=== PATIENT | female | born 1955 | race Caucasian/White ===

== ENCOUNTER 2022-08-30 11:32 | Outpatient (CLI) | payer MEDICARE | END 2022-08-30 11:33 | disposition home or self-care (01) | LOC: RAD-FRANK 11:32 | PROVIDERS: ATTEND Nurse Practitioner Family | DX: M25.562 Pain in left knee (principal); M17.12 Unilateral primary osteoarthritis, left knee; M11.262 Other chondrocalcinosis, left knee ==

== ENCOUNTER 2023-07-09 10:19 | Outpatient (CLI) | payer MEDICARE | END 2023-07-09 10:20 | disposition home or self-care (01) | LOC: BICMRI 10:19 | PROVIDERS: ATTEND Nurse Practitioner Family | DX: Z12.31 Encounter for screening mammogram for malignant neoplasm of breast (principal); M25.562 Pain in left knee; M25.462 Effusion, left knee; S83.232A Complex tear of medial meniscus, current injury, left knee, initial encounter; Z80.3 Family history of malignant neoplasm of breast | CPT/HCPCS: 77063; 77067 ==

== ENCOUNTER 2023-10-23 10:55 | Outpatient (CLI) | payer MEDICARE | END 2023-10-23 10:56 | disposition home or self-care (01) | LOC: LABBT 10:55 | PROVIDERS: ATTEND Orthopaedic Surgery | DX: Z01.818 Encounter for other preprocedural examination (principal); M17.12 Unilateral primary osteoarthritis, left knee | CPT/HCPCS: 71046; 93005; 93010 ==

== ENCOUNTER 2023-10-28 06:03 | Observation (INO) | payer MEDICARE ==
[2023-10-23 12:15] VITALS: BMI 26.9
[2023-10-23 12:30] LABS: Bilirubin Neg (Negative); Blood, Urine 50 (Negative); Clarity Clear (Clear); Glucose, Urine (Dipstick) Normal (Negative); Ketone, Urine Negative (Negative); Leukocyte Negative (Negative); Nitrite Negative (Negative); Protein, Urine (Dipstick) 15 mg/dl (Neg-Trace); Urobilinogen Normal mg/dL (Less than 2)
[2023-10-23 13:22] LABS: #Basophils 0.1 10x3/uL (0.0-0.2); #Eosinphils 0.1 10x3/uL (0.0-0.5); #Monocytes 0.5 10x3/uL (0.0-1.1); #Neutrophils 2.8 10x3/uL (1.5-8.4); %Basophils 1.2 % (0.0-2.0); %Lymphocytes 33.8 % (18.0-47.0); %Monocytes 10.2 % (0.0-10.0); %Neutrophils 53.2 % (40.0-75.0); Hemoglobin 14.2 g/dL (12.0-15.5); Mean Corpuscular HGB CONC 33.8 g/dL (32.0-36.0); Mean Corpuscular Hemoglobin 32.4 pg (27.0-33.0); Mean Corpuscular Volume 95.9 fl (81.6-98.3); Mean Platelet Volume 10.9 fl (7.4-10.4); Platelet Count 308 10x3/uL (150-450); RBC Distribution Width 12.4 % (11.5-14.5); Red Blood Cell (RBC) Count 4.38 10x6/uL (3.90-5.03); White Blood Cell (WBC) Count 5.2 10x3/uL (3.5-10.5)
[2023-10-23 13:29] LABS: Prothrombin Time 10.6 sec (9.5-12.1)
[2023-10-23 13:34] LABS: Anion Gap 17 mmol/L (10-20); BUN (Urea Nitrogen) 13 mg/dL (9.8-20.1); Calc. Creatinine Clearance 0 mL/min (70-130); Calcium 9.9 mg/dL (7.8-10.44); Carbon Dioxide 21 mmol/L (23-31); Chloride 105 mmol/L (98-107); Estimated GFR 95; Glucose 108 mg/dL (80-115); Potassium 4.4 mmol/L (3.5-5.1); Sodium 139 mmol/L (136-145)
[2023-10-28] MEDS ORDERED: Tranexamic Acid 1,000 MG/10 ML VIAL ONE ×2 (06:20→09:41)
[2023-10-28] MEDS ORDERED: Sodium Chloride 0.9% 100 ML ONE ×3 (06:21→09:42)
[2023-10-28] MEDS ORDERED: Vancomycin 1 GM/200 ML (FROZEN) BAG ONE (06:21)
[2023-10-28] MEDS ORDERED: Bupivacaine PF 0.5% 30 ML VIAL ONE ×2 (06:25→06:36)
[2023-10-28] MEDS ORDERED: PROPOFOL 20 ML ONE (06:35)
[2023-10-28] MEDS ORDERED: EPINEPHrine 1 MG/ML VIAL ONE (06:35)
[2023-10-28] MEDS ORDERED: Fentanyl 250 MCG/5 ML VIAL ONE (06:35)
[2023-10-28] MEDS ORDERED: fentaNYL 50 mcg/mL 1 mL Vial ONE (06:35)
[2023-10-28] MEDS ORDERED: Lidocaine 1% (PF) 30 ML VIAL ONE (06:36)
[2023-10-28] MEDS ORDERED: Midazolam HCl 2 mg/2 ml Vial ONE (06:36)
[2023-10-28] MEDS ORDERED: CEFAZOLIN 2 GM VIAL ONE (06:54)
[2023-10-28] MEDS ORDERED: Dexamethasone 20 MG/5 ML VIAL ONE (07:25)
[2023-10-28] MEDS ORDERED: PHENYLEPHRINE-NS 100 MCG/ML 10 ML SYRINGE ONE (07:34)
[2023-10-28] MEDS ORDERED: fentaNYL 50 mcg/mL 1 mL Vial SLOW IVP PRN (07:47)
[2023-10-28] MEDS ORDERED: Zolpidem Tartrate 5 MG TAB PO PRN ×2 (08:00→09:30)
[2023-10-28] MEDS ORDERED: Ropivacaine 0.2% 550 ML 550 ML NERVE BLCK SCH (08:00)
[2023-10-28] MEDS ORDERED: Ondansetron PF 4 MG/2 ML Vial IVP PRN ×2 (08:00→09:30)
[2023-10-28] MEDS ORDERED: traMADol HCl 50 MG TAB PO PRN ×2 (08:00)
[2023-10-28] MEDS ORDERED: Promethazine HCl 25 MG/ML VIAL IM PRN ×2 (08:00→09:30)
[2023-10-28] MEDS ORDERED: HYDROcodone/Acetaminophen 10/325 mg Tablet PO PRN (08:00)
[2023-10-28] MEDS ORDERED: Ondansetron PF 4 MG/2 ML Vial ONE (08:42)
[2023-10-28] MEDS ORDERED: Ketorolac Tromethamine 30 MG (1 mL) VIAL ONE (08:42)
[2023-10-28] MEDS ORDERED: HYDROmorphone 0.5 MG/0.5 ML SYRINGE ONE ×2 (09:14→09:36)
[2023-10-28] MEDS ORDERED: Acetaminophen 325 MG TAB PO PRN (09:30)
[2023-10-28] MEDS ORDERED: Tranexamic Acid 1,000 MG in Sodium Chloride 0.9% 100 ML IVPB SCH (09:30)
[2023-10-28] MEDS ORDERED: diphenhydrAMINE 25 MG CAP PO PRN (09:30)
[2023-10-28] MEDS ORDERED: CeleCOXIB 100 MG CAP PO PRN (12:08)
[2023-10-28] MEDS: Ketorolac Tromethamine 30 MG (1 mL) VIAL IVP SCH ×2 (12:36→16:51)
[2023-10-28] MEDS: Sodium Chloride 0.9% 1,000 ML IV SCH ×2 (12:51→15:11)
[2023-10-28] MEDS: CEFAZOLIN 2 GM in Sodium Chloride 0.9% 100 ML IVPB SCH (15:11)
[2023-10-28] MEDS ORDERED: Vancomycin (BATCH) 1.5 GM in Premix 1 BAG IVPB SCH (20:00)
[2023-10-28] MEDS: Aspirin 81 mg Enteric Coated Tablet PO SCH (20:44)
[2023-10-29] MEDS: CEFAZOLIN 2 GM in Sodium Chloride 0.9% 100 ML IVPB SCH (00:11)
[2023-10-29] MEDS: Ketorolac Tromethamine 30 MG (1 mL) VIAL IVP SCH ×5 (00:12→23:31)
[2023-10-29 05:05] LABS: Hematocrit 31.3 % (36.0-47.0); Hemoglobin 9.9 g/dL (12.0-16.0); Mean Corpuscular HGB CONC 31.6 g/dL (32.0-36.0); Mean Corpuscular Hemoglobin 32.4 pg (27.0-31.0); Mean Corpuscular Volume 102.3 fl (78.0-98.0); Mean Platelet Volume 11.3 fL (7.4-10.4); Platelet Count 191 10x3/uL (130-400); RBC Distribution Width 12.7 % (11.5-14.5); Red Blood Cell (RBC) Count 3.06 mill/uL (4.20-5.40); White Blood Cell (WBC) Count 6.2 10x3/uL (4.8-10.8)
[2023-10-29] MEDS: HYDROcodone/Acetaminophen 10/325 mg Tablet PO PRN ×3 (05:40→20:58)
[2023-10-29] MEDS ORDERED: Multivitamin W/ Minerals 1 TAB PO SCH (09:00)
[2023-10-29] MEDS ORDERED: FLU VACC QS2023(65UP)/MF59C/PF 60 MCG/0.5 ML SYRINGE IM ONE (09:00)
[2023-10-29] MEDS ORDERED: Ropivacaine 0.5% HCl/PF (150 MG/30 ML VIAL) ONE (10:20)
[2023-10-29] MEDS: Losartan 25 MG TAB PO SCH (10:55)
[2023-10-29] MEDS: Aspirin 81 mg Enteric Coated Tablet PO SCH ×2 (10:56→20:58)
[2023-10-29] MEDS: Rosuvastatin 10 MG TAB PO SCH (10:56)
[2023-10-29] MEDS: Senokot S 8.6-50 MG TAB PO SCH ×2 (10:56→20:58)
[2023-10-29] MEDS: Ferrous Gluconate 324 MG TAB PO SCH ×2 (13:08→18:08)
[2023-10-29] MEDS: Sodium Chloride 0.9% 1,000 ML IV SCH ×2 (18:29→18:30)
[2023-10-30] MEDS: HYDROcodone/Acetaminophen 10/325 mg Tablet PO PRN ×2 (02:32→08:54)
[2023-10-30] MEDS: Sodium Chloride 0.9% 1,000 ML IV SCH (02:36)
[2023-10-30 04:40] LABS: Hematocrit 29.8 % (36.0-47.0); Hemoglobin 9.6 g/dL (12.0-16.0); Mean Corpuscular HGB CONC 32.2 g/dL (32.0-36.0); Mean Corpuscular Volume 102.4 fl (78.0-98.0); Mean Platelet Volume 11.5 fL (7.4-10.4); Platelet Count 183 10x3/uL (130-400); RBC Distribution Width 12.7 % (11.5-14.5); Red Blood Cell (RBC) Count 2.91 mill/uL (4.20-5.40); White Blood Cell (WBC) Count 6.5 10x3/uL (4.8-10.8)
[2023-10-30] MEDS: Ketorolac Tromethamine 30 MG (1 mL) VIAL IVP SCH (05:33)
[2023-10-30] MEDS: Ferrous Gluconate 324 MG TAB PO SCH (08:54)
[2023-10-30] MEDS: Rosuvastatin 10 MG TAB PO SCH (08:55)
[2023-10-30] MEDS: Senokot S 8.6-50 MG TAB PO SCH (08:55)
[2023-10-30] MEDS: Aspirin 81 mg Enteric Coated Tablet PO SCH (08:55)
[2023-10-30] MEDS: Losartan 25 MG TAB PO SCH (08:55)
[2023-10-30 11:59] VITALS: BP 133/84; TEMP 98.3
== END 2023-10-30 13:59 | disposition home or self-care (01) ==
LOC: SDC 06:03 → SJJU 09:30
PROVIDERS: ADMIT Orthopaedic Surgery; ATTEND Orthopaedic Surgery
PROC: 0SRD0JZ Replacement of Left Knee Joint with Synthetic Substitute, Open Approach (ICD-10-PCS; principal; 2023-10-28)
DX: M17.12 Unilateral primary osteoarthritis, left knee (principal); I10 Essential (primary) hypertension
CPT/HCPCS: 27447; 80048; 81003; 85025; 85027 ×2; 85610; 86850; 86900; 86901; 87081; 97110 ×2; 97116 ×3; 97530 ×2; A4306; C1713; C1776; J0171; J3010 ×2; J3370 ×2; 36415; J0665; J1100; J1170; J1885; J2001; J2250; J2405; J2704; J2795; J3490; J7050

== ENCOUNTER 2025-07-05 10:35 | Outpatient (CLI) | payer OTHER | END 2025-07-05 10:36 | disposition home or self-care (01) | LOC: BICCT 10:35 | PROVIDERS: ATTEND Internal Medicine Cardiovascular Disease | DX: Z13.6 Encounter for screening for cardiovascular disorders (principal); I10 Essential (primary) hypertension; I25.10 Atherosclerotic heart disease of native coronary artery without angina pectoris | CPT/HCPCS: 75571 ==